=== PATIENT | female | born 1960 | race Two or more races ===

== ENCOUNTER 2025-03-19 05:19 | Emergency (ER) | payer OTHER ==
[~2025-03-19] VITALS: Ht 147.3 cm; Wt 68.9 kg
[2025-03-19 05:22] VITALS: TEMP 98.2
[2025-03-19] MEDS ORDERED: LEVETIRACETAM (500MG) 500 MG/5 ML VIAL IV ONE (05:25)
[2025-03-19] MEDS: LEVETIRACETAM (500MG) 1,000 MG in IV NS 0.9% 90 ML IV STA (06:04)
[2025-03-19 06:26] LABS: PLATELET COUNT (AUTO) 415 K/uL (150-450); RED BLOOD CELL COUNT(AUTO) 4.57 MIL/uL (4.0-5.2); RED CELL DISTRIBUTION WIDTH 14.5 % (11.5-15.0); WHITE BLOOD COUNT (AUTO) 12.7 K/uL (4.3-11.0)
[2025-03-19 06:37] LABS: APPEARANCE,URINE CLEAR (CLEAR); BLOOD, URINE NEGATIVE Ery/uL (NEGATIVE); LEUKOCYTE ESTERASE ,URINE NEGATIVE (NEGATIVE); NITRITE, URINE NEGATIVE (NEGATIVE); UGLUCOSE NEGATIVE (NEGATIVE)
[2025-03-19 07:02] LABS: EOSINOPHILS % (MANUAL) 1 % (0-4); LYMPHOCYTES % (MANUAL) 44 % (16-48); METAMYELOCYTES % 2 % (0-0); MONOCYTES % (MANUAL) 2 % (0-11.0); MYELOCYTES % 2 % (0-0); NEUTROPHILS % (MANUAL) 49 (42-76); PLATELET ESTIMATE ADEQUATE
[2025-03-19 08:04] LABS: CALCIUM, SERUM 8.8 mg/dL (8.5-10.1); CREATININE 0.9 mg/dL (0.6-1.3); SODIUM SERUM 138.0 mmol/L (136-145); UREA NITROGEN, BLOOD 11.0 mg/dL (7-18)
[2025-03-19 08:10] LABS: ASPARTATE AMINOTRANSFERASE 25.0 U/L (15-37); TOTAL PROTEIN, SERUM 7.7 g/dL (6.4-8.2)
[2025-03-19] MEDS ORDERED: LEVE100S PO (09:21)
[2025-03-19] MEDS ORDERED: AMOX400S5 PO (09:21)
[2025-03-19 09:42] VITALS: BP 117/87; O2SAT 98
== END 2025-03-19 09:43 | disposition home or self-care (01) ==
LOC: ER 05:21
DX: R56.9 Unspecified convulsions (principal); Z79.899 Other long term (current) drug therapy; Z87.01 Personal history of pneumonia (recurrent)
CPT/HCPCS: 99285; 96365; 70450; 71045; 93005; 85027; 83735; 85007; 81003; 36415; 80053; J7030 ×2; J1953 ×2